=== PATIENT | female | born 1995 | race Two or more races ===

== ENCOUNTER 2018-12-02 08:09 | Inpatient (IN) | payer BC, MEDICAID ==
[2018-12-02] MEDS ORDERED: RINGERS SOLUTION,LACTATED 1,000 ML IV PRN (08:18)
[2018-12-02] MEDS ORDERED: DIBUCAINE 1% OINTMENT 56 GM TP PRN (08:21)
[2018-12-02] MEDS ORDERED: ACETAMINOPHEN WITH CODEINE #3 TABLET PO PRN ×2 (08:21)
[2018-12-02] MEDS ORDERED: OXYTOCIN/NORMAL SALINE 20 UNIT/1,000 ML RTUINJ IV PRN (08:21)
[2018-12-02] MEDS ORDERED: MEASLES,MUMPS&RUBELLA VACC/PF 0.5 ML VIAL SUBCUT PRN (08:21)
[2018-12-02] MEDS ORDERED: DIPH/PERTUSS(ACELL)/TETANUS VAC/PF 0.5 ML SYR (>=10YO) IM PRN (08:21)
[2018-12-02] MEDS ORDERED: ZOLPIDEM TARTRATE 5 MG TABLET PO PRN (08:21)
[2018-12-02] MEDS ORDERED: BENZOCAINE/MENTHOL AEROSOL SPRAY 56 ML TOP PRN (08:21)
--- NOTE | 2018-12-02 08:28 | Admission Physical ---
Datetime Report Generated by CPN: 12/02/2018 08:28 CURRENT ADMISSION Chief Complaint: Uterine Contractions; Suspected Ruptured Membranes Indication for Induction: Not Applicable Admit Impression : Term, Intrauterine ; Active Labor Admit Impression- Other: OB emergency called when pt arrived at [facility] Admit Plan: Admit to Unit; Initiate Labor Protocol Admit Plan- Other: precipituous delivery within 60 secs of arrival at _D. ALLERGIES Medication Allergies: No Medication Allergies: No Known Allergies (05/25/2014) OBSTETRICAL HISTORY EDC: 12/20/2018 00:00 PHYSICAL EXAM General: Normal HEENT: Normal Neurologic: Normal Thyroid: Normal Heart: Normal Lungs: Normal Breast: Normal Back: Normal Abdomen: Normal Genitourinary Exam: Normal Extremities: Normal DTRs: Normal Pelvic Type: Adequate Vital Signs: Reviewed; Within Normal Limits VAGINAL EXAM Dilatation: 10 Effacement: 100 Station: 4 MEMBRANES Pooling: Positive Membranes: Ruptured Amniotic Fluid Color: Clear FETUS A Estimated Weight (gm): 2400 Presentation: Vertex INFORMED CONSENT Signature: with User ID: Reed
[2018-12-02] MEDS ORDERED: OXYTOCIN/NORMAL SALINE 0 UNIT/0 ML RTUINJ ONE (08:29)
[2018-12-02] MEDS ORDERED: MISOPROSTOL 0.2 MG TABLET ONE ×2 (08:32→11:30)
[2018-12-02] MEDS ORDERED: OXYTOCIN/NORMAL SALINE 20 UNIT/1,000 ML RTUINJ ONE (08:32)
[2018-12-02] MEDS ORDERED: OXYTOCIN 10 UNIT/ML VIAL ONE (08:32)
[2018-12-02] MEDS ORDERED: OXYTOCIN 10 UNIT/ML VIAL IM PRN (09:31)
[2018-12-02 09:45] LABS: ABSOLUTE EOSINOPHILS # (AUTO) 0.1 10^3/uL (0.0-0.6); ABSOLUTE LYMPHOCYTES (AUTO) 1.3 10^3/uL (0.5-4.7); ABSOLUTE MONOCYTES (AUTO) 0.7 10^3/uL (0.1-1.4); ABSOLUTE NEUT (AUTO) 11.6 10^3/uL (1.7-8.2); BASOPHILS % (AUTO) 0.3 % (0-2); EOSINOPHILS % (AUTO) 0.5 % (0-6); HEMATOCRIT 32.6 % (36.0-47.0); HEMOGLOBIN 11.3 g/dL (12.0-15.5); LYMPHOCYTES % (AUTO) 9.3 % (13-45); MEAN CORPUSCULAR HEMOGLOBIN 29.6 pg (27.0-33.4); MEAN CORPUSCULAR HGB CONC 34.6 g/dL (32.0-36.0); MEAN CORPUSCULAR VOLUME 85 fl (80-97); MONOCYTES % (AUTO) 5.3 % (3-13); PLATELET COUNT 246 10^3/uL (150-450); RED BLOOD COUNT 3.81 10^6/uL (3.72-5.28); RED CELL DISTRIBUTION WIDTH 13.3 % (11.5-14.0); SEGMENTED NEUTROPHILS % (AUTO) 84.6 % (42-78); TOTAL CELLS COUNTED % (AUTO) 100 %; WHITE BLOOD COUNT 13.6 10^3/uL (4.0-10.5)
[2018-12-02 10:33] LABS: APPEARANCE,URINE CLEAR; BILIRUBIN,URINE NEGATIVE (NEGATIVE); COLOR,URINE YELLOW; GLUCOSE, URINE NEGATIVE (NEGATIVE); KETONES,URINE NEGATIVE (NEGATIVE); LEUKOCYTE ESTERASE,URINE NEGATIVE (NEGATIVE); NITRITE,URINE NEGATIVE (NEGATIVE); PROTEIN,URINE NEGATIVE (NEGATIVE); UROBILINOGEN,URINE NEGATIVE mg/dL (<2.0)
--- NOTE | 2018-12-02 10:46 | Delivery Summary ---
Del Sum A-C Datetime Report Generated by CPN: 12/02/2018 10:46 DELIVERY PERSONNEL DELIVERY PERSONNEL: [id number] Delivery Doctor:: Rhina Palma MD Labor and Delivery Nurse:: Cyndee Fischer RNpayroll specialist Nurse:: Kimmy Patterson RN Silk Screen Printing Racker:: Kike Mansfield RN Nursery Nurse:: Lily Reynolds RN Fingerprint Technician/TOBACCO CHECKOUT CLERK: Cece Keith CNA II MATERNAL INFORMATION Delivery Anesthesia: None Medications After Delivery: Pitocin 10 Units IM; Pitocin Bolus-Please Comment; Cytotec 800mcg Per Rectum/Vagina Meds After Delivery Comment: pitocin 20 units in 1 L NS bolusing per order Estimated Blood Loss (ml): 200 Maternal Complications: Precipitous Labor (<3hrs) LABOR SUMMARY EDC: 12/20/2018 00:00 No. Babies in Womb: 1 Attempted: No Labor Anesthesia: None LABOR INFORMATION Reason for Induction: Not Applicable Onset of Labor: 12/02/2018 05:50 Complete Dilatation: 12/02/2018 08:01 Oxytocin: N/A Group B Beta Strep: Positive Antibiotics # of Doses: 0 Steroids Given: None Reason Steroids Not Administered: Not Applicable MEMBRANES Membranes Rupture Method: Spontaneous Rupture of Membranes: 12/02/2018 08:00 Length of Rupture (hr): 0.10 Amniotic Fluid Color: Clear Amniotic Fluid Amount: Moderate Amniotic Fluid Odor: Normal STAGES OF LABOR Stage 1 hr: 2 Stage 1 min: 11 Stage 2 hr: 0 Stage 2 min: 5 Stage 3 hr: 0 Stage 3 min: 5 Total Time in Labor hr: 2 Total Time in Labor min: 21 VAGINAL DELIVERY Episiotomy: None Laceration #1: None Laceration Extension #1: N/A Laceration Repair: Not Applicable Sponge Count Correct: N/A Sharps Count Correct: N/A CSECTION DELIVERY Primary Indication: N/A Secondary Indication: N/A CSection Incidence: N/A Labor: N/A CSection Incision: N/A BABY A INFORMATION Infant Delivery Date/Time: 12/02/2018 08:06 Method of Delivery: Vaginal Born in Route : No : N/A Forceps: N/A Vacuum Extraction: N/A Shoulder Dystocia : No PRESENTATION/POSITION BABY A Presentation: Cephalic Cephalic Presentation: Vertex Breech Presentation: N/A PLACENTA INFORMATION BABY A Placenta Delivery Time : 12/02/2018 08:11 Placenta Method of Delivery: Spontaneous Placenta Status: Delivered SCORES BABY A Heart Rate 1 min: >100 bpm Resp Effort 1 min: Good Cry Reflex Irritability 1 min: Cough or Sneeze or Pulls Away Muscle Tone 1 min: Active Motion Color 1 min: Blue/Pale Resuscitation Effort 1 min: Tactile Stimulation SCORE 1 MIN: 8 Heart Rate 5 min: >100 bpm Resp Effort 5 min: Good Cry Reflex Irritability 5 min: Cough or Sneeze or Pulls Away Muscle Tone 5 min: Active Motion Color 5 min: Body Seaman, Extremities Blue Resuscitation Effort 5 min: N/A SCORE 5 MIN: 9 INFORMATION BABY A Gestational Age at Delivery: 37.3 Gestational Status: Early Term- 37- 38.6 Weeks Infant Outcome : Liveborn Infant Condition : Stable Sex: Female IDENTIFICATION BABY A Infant Verification Date/Time: 12/02/2018 08:52 ID Band Number: [id number] Mother's Name Verified: Yes Infant RN Verifying Infant: C. [place] RN, L. Bursery RN WEIGHT/LENGTH BABY A Birthweight (gm): 2771 Infant Weight (lb): 6 Weight (oz): 2 Length (in): 18.50 Infant Length (cm): 46.99 CORD INFORMATION BABY A No. Cord Vessels: 3 Nuchal Cord : N/A Cord Blood Taken: Yes-For Storage (Mom's Blood type +) Infant Suction: None ASSESSMENT BABY A Infant Complications: Other Complications- Other: GBS positive Physical Findings at Delivery: Within Normal Limits Respirations: Appears Normal Skin to Skin: Yes Skin to Skin Time (min): 60 Rail Signal Worker/ALS Called : No Infant Care By: Maty Patterson RN Transferred To: Remains with Mother BABY B INFORMATION : N/A SIGNATURES Signature: with User ID: [email or web address]
[2018-12-02] MEDS ORDERED: FERROUS SULFATE 325 MG TABLET PO ONE (10:50)
[2018-12-02] MEDS ORDERED: SENNOSIDES/DOCUSATE 8.6-50 MG 1 EACH TABLET ONE (10:50)
[2018-12-02] MEDS ORDERED: DOCUSATE SODIUM 100 MG CAPSULE ONE (10:50)
[2018-12-02] MEDS ORDERED: IBUPROFEN 800 MG TABLET ONE (10:50)
[2018-12-02] MEDS ORDERED: PRENATAL VITAMIN W DHA CAPSULE PO ONE (10:50)
[2018-12-02] MEDS ORDERED: BENZOCAINE/MENTHOL AEROSOL SPRAY 56 ML ONE (10:51)
[2018-12-02] MEDS: DOCUSATE SODIUM 100 MG CAPSULE PO SCH ×2 (10:54→17:55)
[2018-12-02] MEDS: SENNOSIDES/DOCUSATE 8.6-50 MG 1 EACH TABLET PO SCH (10:54)
[2018-12-02] MEDS: FERROUS SULFATE 325 MG TABLET PO SCH ×2 (10:54→17:55)
[2018-12-02] MEDS: IBUPROFEN 800 MG TABLET PO SCH ×3 (10:54→21:30)
[2018-12-02] MEDS: PRENATAL VITAMIN W DHA CAPSULE PO SCH (10:54)
[2018-12-02 10:56] LABS: URINE AMPHETAMINES SCREEN NEGATIVE; URINE BARBITURATES SCREEN NEGATIVE; URINE BENZODIAZEPINES SCREEN NEGATIVE; URINE COCAINE SCREEN NEGATIVE; URINE MARIJUANA (THC) SCREEN NEGATIVE; URINE METHADONE SCREEN NEGATIVE; URINE PHENCYCLIDINE SCREEN NEGATIVE
--- NOTE | 2018-12-02 13:10 | Warning Signs in Babies ---
VOD Warning Signs Datetime Report Generated by [facility]: 12/02/2018 13:10 VOD#608 -Warning Signs in Babies: Viewed with Parent(s)/Family (12/02/2018 08:26:Cyndee Fischer RN)
[2018-12-03] MEDS: IBUPROFEN 800 MG TABLET PO SCH ×3 (06:43→22:43)
[2018-12-03 06:54] LABS: HEMATOCRIT 28.2 % (36.0-47.0); HEMOGLOBIN 9.8 g/dL (12.0-15.5); MEAN CORPUSCULAR HEMOGLOBIN 29.5 pg (27.0-33.4); MEAN CORPUSCULAR HGB CONC 34.8 g/dL (32.0-36.0); MEAN CORPUSCULAR VOLUME 85 fl (80-97); PLATELET COUNT 239 10^3/uL (150-450); RED BLOOD COUNT 3.32 10^6/uL (3.72-5.28); WHITE BLOOD COUNT 12.1 10^3/uL (4.0-10.5)
[2018-12-03] MEDS: FERROUS SULFATE 325 MG TABLET PO SCH ×2 (10:00→17:44)
[2018-12-03] MEDS: DOCUSATE SODIUM 100 MG CAPSULE PO SCH ×2 (10:00→17:44)
[2018-12-03] MEDS: PRENATAL VITAMIN W DHA CAPSULE PO SCH (10:00)
[2018-12-03] MEDS: SENNOSIDES/DOCUSATE 8.6-50 MG 1 EACH TABLET PO SCH (10:00)
--- NOTE | 2018-12-03 10:01 | PDOC PROGRESS REPORT ---
Subjective-OB Progress Note for:: 12/03/18 Physical Exam (OB) Vital Signs: Temp Pulse Resp BP Pulse Ox 98.4 F 68 16 121/68 99 12/03/18 07:57 12/03/18 07:57 12/03/18 07:57 12/03/18 07:57 12/03/18 07:57 Intake & Output 12/02/18 12/03/18 12/04/18 06:59 06:59 06:59 Intake Total 1000 Balance 1000 Weight 87.543 kg - PIH/Pre-Eclampsia Headache: Absent Epigastric Pain: No Visual Changes: No - Lochia Lochia Amount: Small 10-25 ml Lochia Color: Rubra/Red - Abdomen Description: Soft Hernia Present: No Bowel Sounds: Normoactive Flatus Presence: Present Stool: No Fundal Description: Firm Fundal Height: u/u - u/2 Objective-Diagnostic Laboratory: 12/03/18 06:11 12/02/18 12/02/18 12/02/18 09:17 09:17 10:20 WBC 13.6 H RBC 3.81 Hgb 11.3 L Hct 32.6 L MCV 85 MCH 29.6 MCHC 34.6 RDW 13.3 Plt Count 246 Seg Neutrophils % 84.6 H Lymphocytes % 9.3 L Monocytes % 5.3 Eosinophils % 0.5 Basophils % 0.3 Absolute Neutrophils 11.6 H Absolute Lymphocytes 1.3 Absolute Monocytes 0.7 Absolute Eosinophils 0.1 Absolute Basophils 0.0 Urine Color YELLOW Urine Appearance CLEAR Urine pH 6.0 Ur Specific Mentcle 1.010 Urine Protein NEGATIVE Urine Glucose (UA) NEGATIVE Urine Ketones NEGATIVE Urine Blood MODERATE H Urine Nitrite NEGATIVE Ur Leukocyte Esterase NEGATIVE Urine WBC (Auto) 1 Urine RBC (Auto) 3 Antibody Screen NEGATIVE 12/03/18 06:11 WBC 12.1 H RBC 3.32 L Hgb 9.8 L Hct 28.2 L MCV 85 MCH 29.5 MCHC 34.8 RDW 13.0 Plt Count 239 Seg Neutrophils % Lymphocytes % Monocytes % Eosinophils % Basophils % Absolute Neutrophils Absolute Lymphocytes Absolute Monocytes Absolute Eosinophils Absolute Basophils Urine Color Urine Appearance Urine pH Ur Specific [place]cle Urine Protein Urine Glucose (UA) Urine Ketones Urine Blood Urine Nitrite Ur Leukocyte Esterase Urine WBC (Auto) Urine RBC (Auto) Antibody Screen
[2018-12-04] MEDS: IBUPROFEN 800 MG TABLET PO SCH (05:32)
[2018-12-04 08:41] VITALS: BP 116/76
[2018-12-04] MEDS: PRENATAL VITAMIN W DHA CAPSULE PO SCH (09:37)
[2018-12-04] MEDS: DOCUSATE SODIUM 100 MG CAPSULE PO SCH (09:37)
[2018-12-04] MEDS: SENNOSIDES/DOCUSATE 8.6-50 MG 1 EACH TABLET PO SCH (09:37)
[2018-12-04] MEDS: FERROUS SULFATE 325 MG TABLET PO SCH (09:37)
--- NOTE | 2018-12-04 10:06 | PDOC PROGRESS REPORT ---
Subjective-OB Progress Note for:: 12/04/18 Subjective: Doing well, ready to go home, family at [facility] Physical Exam (OB) Vital Signs: Temp Pulse Resp BP Pulse Ox 98.4 F 77 18 116/76 100 12/04/18 08:41 12/04/18 08:41 12/04/18 08:41 12/04/18 08:41 12/04/18 08:41 Intake & Output 12/03/18 12/04/18 12/05/18 06:59 06:59 06:59 Intake Total 1000 1000 Balance 1000 1000 Weight 87.543 kg - PIH/Pre-Eclampsia DTR's: 1 + Clonus: Negative Headache: Absent Epigastric Pain: No Visual Changes: No - Lochia Lochia Amount: Scant < 10 ml Lochia Color: Rubra/Red - Abdomen Description: Soft, Round Hernia Present: No Fundal Description: Firm, Midline Fundal Height: u/u - u/2 Objective-Diagnostic Laboratory: 12/03/18 06:11 Assessment and Plan(PN) - Assessment and Plan (1) Delivery normal Is this a current diagnosis for this admission?: Yes (2) Limited care in first trimester Is this a current diagnosis for this admission?: Yes (3) Carrier of group B Streptococcus Is this a current diagnosis for this admission?: Yes (4) Labor, precipitous, delivered Is this a current diagnosis for this admission?: Yes - Time Spent with Patient Time with patient: Less than 15 minutes Medications reviewed and adjusted accordingly: Yes - Disposition Anticipated Discharge: Home Within: within 24 hours
--- NOTE | 2018-12-04 10:09 | PDOC DISCHARGE SUMMARY ---
Final Diagnosis Discharge Date: 12/04/18 - Final Diagnosis (1) Delivery normal Is this a current diagnosis for this admission?: Yes (2) Limited care in first trimester Is this a current diagnosis for this admission?: Yes (3) Carrier of group B Streptococcus Is this a current diagnosis for this admission?: Yes (4) Labor, precipitous, delivered Is this a current diagnosis for this admission?: Yes Discharge Data - Discharge Medication Prescriptions: Ferrous Sulfate [Feosol 325 mg Tablet] 325 mg PO DAILY #30 tablet Home Medications: No.137/Iron/Folic Acd [ Vitamin Tablet] 1 each VG DAILY 05/25/14 Ferrous Sulfate [Feosol 325 mg Tablet] 325 mg PO DAILY #30 tablet 12/04/18 Gestational Age: 37.3 Reason(s) for Admission: Onset of Labor, Group B Strep Positive Procedures: Ultrasound - [place] Data Baby 1 Female at 1 minute: 8 at 5 minutes: 9 Weight: 2.778 kg Home with Mother: Yes Complications: No - Diagnosis Test Laboratory: Temp Pulse Resp BP Pulse Ox 98.4 F 77 18 116/76 100 12/04/18 08:41 12/04/18 08:41 12/04/18 08:41 12/04/18 08:41 12/04/18 08:41 12/02/18 12/02/18 12/03/18 09:17 10:20 06:11 RBC 3.81 3.32 L Hgb 11.3 L 9.8 L Hct 32.6 L 28.2 L Urine Opiates Screen NEGATIVE - Discharge information/Instructions Discharge Activity: Activity As Tolerated, No Lifting Over 10 Pounds, No Lifting/Push/Pulling, Pelvic Rest Discharge Diet: As Tolerated, Regular Disposition: HOME, SELF-CARE Follow up with: [facility] in: 4, Days, Weeks
== END 2018-12-04 13:03 | disposition home or self-care (01) | DRG 807 ==
LOC: LC 08:09 → LR 08:11 → 2S 13:40
PROVIDERS: ADMIT Student in an Organized Health Care Education/Training Program; ATTEND Student in an Organized Health Care Education/Training Program
PROC: 10E0XZZ Delivery of Products of Conception, External Approach (ICD-10-PCS; principal; 2018-12-02)
DX: O62.3 Precipitate labor (principal); Z37.0 Single live birth; O99.824 Streptococcus B carrier state complicating childbirth; Z3A.37 37 weeks gestation of pregnancy
CPT/HCPCS: 36415; 80307; 81001; 85025; 85027; 86592; 86850; 86900; 86901; J2590; J3490